=== PATIENT | female | born 1995 | race Caucasian/White ===

== ENCOUNTER 2016-12-11 20:06 | Inpatient (IN) ==
[2016-12-11 14:20] LABS: Bilirubin,Urine Negative (Negative); Blood,Urine Moderate (Negative); Clarity,Urine Cloudy (Clear); Color,Urine Yellow (Yellow); Ketones,Urine Trace mg/dL (Negative); Leukocyte Esterase,Urine Negative (Negative); Nitrite,Urine Negative (Negative); PH,Urine 6.5 pH Units (5.0-8.0); Protein,Urine Negative (Neg-Trace); Specific Gravity,Urine 1.019 (1.010-1.025); Urobilinogen,Urine Normal (Normal)
[2016-12-11 14:25] LABS: Bacteria,Urine None Seen per hpf (None-Few); Hyaline Casts,Urine None Seen per lpf (None-Few); RBC,Urine 0-3 per hpf (0-3); Squamous Epithelial Cell,Urine Moderate per lpf (None-Few); WBC,Urine 0-3 per hpf (0-3)
[2016-12-11 14:40] LABS: Glucose,Urine (UA) Normal (Normal)
[~2016-12-11 20:06] MED LIST: *HR* Morphine 10 MG/ML VIAL SQ ONE; *HR* Morphine 2 MG/ML SYRINGE SQ ONE; Famotidine 20 MG/2 ML VIAL IVP PRN; Naloxone 0.4 MG/ML INJ IVP PRN; Ondansetron 4 MG/2 ML VIAL IVP PRN
--- NOTE | 2016-12-11 20:06 | OB/GYN History & Physical ---
Date of Encounter: 12/11/16 Time of Encounter: 20:04 Assessment and Plan (1) 37 weeks gestation of Current visit: Yes Status: Acute (2) Obesity (BMI 35.0-39.9 without comorbidity) Current visit: Yes Status: Acute (3) Spontaneous onset of labor Current visit: Yes Status: Acute Admit for labor due to SVE change from 2-3 on arrival to 5cm now. Epidural when able. GBS negative. Anticipate . History of Present Illness Chief complaint: contractions HPI: Ms. Navarro is a 20 year old female presenting at 37w4d with c/o that started at 1000 this am and were initially 8 minutes apart. While in triage her contractions increased in frequency, duration, and intensity. She received morphine for therapeutic rest. After a few hours her cervical exam changed from 2-3cm on initial exam to 5cm. She denies LOF or VB. Good FM today. THis has been complicated by obesity. Blood type O positive. Rubella immune. Serologies and GBS negative. Past Med Surg Social Fam HX - Past Medical History Medical history: no medical history, other Psychiatric history: no psych history - Past Surgical History Surgical History: other - Social History Smoking Status: Current every day smoker Packs per day: 0.5 Smokeless Tobacco Status: No Alcohol use: none Drug use: none - Family History Mother Adopted: No Living Status: Still Living Hx Family Cardiac Disorders: Yes ([place]) Obstetrical History - Pregnancies : 1 Medications and Allergies Vit/Iron Fumarate/FA [ Tablet] 1 each PO DAILY #30 tablet 05/01 [Rx] Allergies Amoxicillin [From Augmentin] Allergy (Verified 12/11/16 13:58) Rash clavulanic acid [From Augmentin] Allergy (Verified 12/11/16 13:58) Rash Loracarbef [From Lorabid] Allergy (Verified 12/11/16 13:58) Difficulty Breathing Penicillins Allergy (Verified 12/11/16 13:58) Rash sulfamethoxazole [From Bactrim] Allergy (Verified 12/11/16 13:58) Rash trimethoprim [From Bactrim] Allergy (Verified 12/11/16 13:58) Rash Review of System OB All systems PM: reviewed and no additional remarkable complaints except as stated Exam - Constitutional Constitutional: well developed, well nourished, moderate distress, obese - HEENT HEENT: Mucus Membranes Moist - Lungs Respiratory exam: CTAB - Cardiovascular Cardiovascular exam: RRR, +S1, +S2 - Abdomen Abdomen: Present: gravid, non tender (EFW by terra is 7lbs) - Extremities Extremities exam: pedal edema (mild bilaterally) - Vulva Vulva: bilateral: normal - Vagina Vagina: Present: normal moisture - Cervix Dilation: 5 Effacement: 80 (BBOW) Station: -1 - Uterus Uterus exam: Absent: tender - Anus/Rectum Anus/Rectum: Present: normal perianal skin Results Abnormal lab results Urine Clarity Cloudy (Clear) A 12/10/16 13:45 Urine Ketones Trace mg/dL (Negative) H 12/10/16 13:45 Urine Blood Moderate (Negative) H 12/10/16 13:45 Ur Squamous Epith Cells Moderate per lpf (None-Few) H 12/10/16 13:45 All other labs normal. - VTE Reasons for not Prescribing Prophylaxis: Treatment not Indicated - Low risk for VTE
[2016-12-11] MEDS ORDERED: Ringers Solution, Lactated 1,000 ML ONE ×3 (20:14→22:10)
[2016-12-11 20:21] LABS: Basophils % 0.2 %; Eosinophils % 0.1 %; Hematocrit 42.2 % (35.3-44.9); Hemoglobin 14.1 g/dL (11.5-15.4); Immature Granulocytes % 0.5 % (0-4); Immature Platelets 7.8 % (1.1-6.1); Lymphocytes # 1.5 K/mcL (0.6-4.6); Mean Corpuscular HGB Conc 33.4 g/dL (31.6-35.5); Mean Corpuscular Hemoglobin 29.7 pg (28.0-33.3); Mean Platelet Volume 10.6 fL (9.4-12.4); Monocytes # 0.9 K/mcL (0.0-1.3); Monocytes % 3.9 %; Neutrophils # 19.1 K/mcL (1.6-8.9); Platelet Count 261 K/mcL (140-400); Red Blood Count 4.74 M/mcL (3.82-4.97); Segmented Neutrophils % 88.3 %
--- NOTE | 2016-12-11 20:52 | OB Labor Progress Note ---
Date of Encounter: 12/11/16 Time of Encounter: 20:50 Labor Progress Note - Subjective Subjective: Pt reports pain is increasing again as morphine is wearing off. She is requesting epidural. - Cervix Cervix: 5/100/-1 BBOW - Heart Tones Heart Tones: Category I - Hartsel Hartsel: 2.5-4 minutes - Interventions Interventions: AROM for moderate amount clear fluid. FSE placed due to difficulty tracing FHR prior to AROM. - Plan Plan: Continue to monitor. Epidural when able. Anticipate .
[2016-12-11] MEDS ORDERED: *HR* FentaNYL (PF) 100 MCG/2 ML VIAL ONE (21:23)
[2016-12-11] MEDS ORDERED: Epidural Premix (fent/bupiv) 110 ML EP ONE (21:23)
[2016-12-11] MEDS ORDERED: Bupivacaine-MPF 0.25% 10 ML VIAL ONE (21:23)
--- NOTE | 2016-12-11 22:03 | Anesthesia Evaluation PreOp ---
Date of Encounter: 12/11/16 Time of Encounter: 21:27 - Past History Planned Operation: ROCIO Cardiac History: Denies any Significant Hx Pulmonary History: Smoker, Pack/yr (smokes 1 black and mild per day for past 5 years) [employer] History: Denies Any Significant HX Other Medical History: Denies Any Significant HX Anesthesia History: No Prior Anesthetic Complications (denies personal or family h/o complications w/ GA; never had any procedure requiring NA) : Yes Test: Positive Alcohol Use: none Drug use: none Medications and Allergies Vit/Iron Fumarate/FA [ Tablet] 1 each PO DAILY #30 tablet 05/01 [Rx] Allergies Amoxicillin [From Augmentin] Allergy (Verified 12/11/16 13:58) Rash clavulanic acid [From Augmentin] Allergy (Verified 12/11/16 13:58) Rash Loracarbef [From Lorabid] Allergy (Verified 12/11/16 13:58) Difficulty Breathing Penicillins Allergy (Verified 12/11/16 13:58) Rash sulfamethoxazole [From Bactrim] Allergy (Verified 12/11/16 13:58) Rash trimethoprim [From Bactrim] Allergy (Verified 12/11/16 13:58) Rash - Meds/Allergy Pre-op Review Medications Reviewed: Yes Allergies Reviewed: Yes Beta Blockers on Current Med List: No Anesthesia Results - Labs 12/11/16 20:10 Anesthesia Exam 157/76, HR 86, RR 22 Height: 1.68m Weight: 107kg NPO (# of Hours): solids >8hrs Pain Scale: 10 Pain Scale Used: Numeric (1 - 10) - HEENT Pupil (Motor): Pupils equal Mallampati: II Teeth: Normal Oral Opening: Greater than 3 - [employer] LOC: Oriented [employer] Motor: Normal RUE, Normal LUE, Normal RLE, Normal LLE, Normal Face [employer] Sensory: Normal: RUE, LUE, RLE, LLE, Face - Cardiac Rhythm: Regular Murmur: None - Pulmonary Breath Sounds: bilateral Clear Respiratory Effort: Symmetrical Anesthesia Assess/Plan ASA Score: 2 Modified Carolann Scale for Level of Consciousness: Cooperative, oriented, and tranquil Anesthetic Plan: Regional Autologous Blood: No Monitoring Plan: Standard Monitors Recovery Plan: Other
[2016-12-11] MEDS ORDERED: *HR* FentaNYL (PF) 100 MCG/2 ML VIAL EP ONE (22:05)
[2016-12-11] MEDS ORDERED: Bupivacaine-MPF 0.25% 10 ML VIAL EP ONE (22:05)
--- NOTE | 2016-12-11 22:08 | Anesthesia Procedures ---
Date of Encounter: 12/11/16 Time of Encounter: 22:06 Procedures: Anesthesia - Epidural/Spinal Patient ID/Chart reviewed: Yes Patient examined: Yes OB Eval: Gestational age: 37 weeks 4 days OB Eval: : 1 OB Eval: Hx Para: 0 OB Eval: Dilated at (cm): 6 OB Eval: Contractions: Non-stressed pattern Consent Obtained: Yes Supplemental Oxygen: None/Room Air Site Prep: Aseptic Technique, Sterile prep and drape, Povidone-Iodine 1% Patient position: upright Local Anesthetic: Lidocaine 1% Amount of Local Anesthetic used: 3 Touhy Needle Gauge: 18 Touhy Needle Depth (cm): 7 Catheter Depth at Skin (cm): 14 (placed at 2145) Test Dose (1.5% Lido + Epi): Volume given (mls): 5 (given in 2 equally divided doses over a period of 5 min) Test Dose Result: Negative Loading Dose: 0.25% Marcaine (mls): 5 Loading Dose: Fentanyl (mcg): 100 Loading Dose Administered: Thru Catheter Infusion Med: 0.125% Bupivacaine w/ 2 mcg/ml Fentanyl Infusion Rate (mls/hr): 14 (w/ demand bolus of 4mL q20min) Catheter Secured in Place: Tegaderm, Tape Interspace Used: L3-L4 Loss of Resistance (ABDELRAHMAN): Yes Blood: No CSF: No Paresthesia: No Vitals + FHT's: please see L&D RN's electronic documentation for VS
[2016-12-11] MEDS ORDERED: Epidural Premix (fent/bupiv) 110 ML EP SCH (22:15)
--- NOTE | 2016-12-12 00:34 | Anesthesia Progress Note ---
Date of Encounter: 12/12/16 Time of Encounter: 12:25 Anesthesia Note - Note Note: called to patient bedside to evaluate breakthrough labor pain; patient reports 6 /10 R>L abdominal pain; positioned patient on R side and 5mL of 0.25% bupivicaine administered via epidural catheter. 12/12/16 00:32
[2016-12-12] MEDS ORDERED: Ringers Solution, Lactated 1,000 ML ONE ×3 (00:40→06:42)
[2016-12-12] MEDS ORDERED: *HR* FentaNYL (PF) 100 MCG/2 ML VIAL ONE (02:22)
[2016-12-12] MEDS ORDERED: *HR* Ropivacaine/PF 0.2% 10 ML AMPUL ONE (02:22)
[2016-12-12] MEDS ORDERED: Epidural Premix (fent/bupiv) 110 ML EP ONE (03:14)
--- NOTE | 2016-12-12 03:30 | Anesthesia Progress Note ---
Date of Encounter: 12/12/16 Time of Encounter: 02:30 Anesthesia Note - Note Note: 12/12/16 03:27 Called to patient bedside to evaluate breakthrough labor pain. Patient describes pain as 10/10 and is bilateral lower abdomen. Catheter pulled back to 13 cm rah and 10mL of 0.2% ropivicaine + 100mcg fentanyl administered. Patient reports decrease in pain score to 5/10. VSS
[2016-12-12] MEDS ORDERED: Oxytocin 20 units/ LR 1000 mL 20 UNIT/1,000 ML BAG IVC ONE ×2 (04:40→09:53)
--- NOTE | 2016-12-12 07:53 | OB/GYN Procedure Note ---
Delivery - Delivery Date: 12/12/16 Provider: Jessica Velazquez Intrapartum events: none Delivery induction: none Delivery augmentation: rupture of membranes Delivery monitor: external uterine, internal FHT Anesthesia: epidural Estimated Blood Loss: 150 - (s) Infant A Delivery Date: 12/12/16 Infant Delivery Time: 07:22 Presentation: vertex Position: EULOGIO Route of delivery: Gender: Female Viability: Viable Pounds: 5 Ounces: 9 at 1 minute: 7 at 5 mins: 9 Shoulder Dystocia: not encountered Specimens collected: cord blood Placenta: spontaneous Cord: nuchal cord, nuchal reduced - Repair Episiotomy: none Laceration Description: None - Complications Delivery complications: none Delivery comments: 20 year-old presenting at 37 weeks in spontaneous labor. She progressed from 3-5 and was admitted for delivery. AROM was performed and she received epidural anesthesia. She progressed normally to complete dilation and pushed effectively to over intact perineum. Infant was a viable female weighing 5lbs 9oz with apgars 7 at one minute and 9 at five minutes. After a 60 second delay the cord was clamped and cut and the placenta delivered spontaneous and intact. No repair was needed. EBL 150ml. Mohter and baby stable in kangaroo care following delivery. - Disposition Mom disposition: stable in LDR disposition: stable in LDR
[2016-12-12] MEDS ORDERED: Acetaminophen 325 MG TABLET PO PRN (10:58)
[2016-12-12] MEDS ORDERED: Oxytocin 20 units/ LR 1000 mL 20 UNIT/1,000 ML BAG IVC SCH (10:58)
[2016-12-12] MEDS ORDERED: Measles/Mumps/Rubella Vacc 0.5 ML VIAL SQ PRN (10:58)
[2016-12-12] MEDS: Prenatal Vit/FA 1 EACH TABLET PO SCH (13:54)
[2016-12-12] MEDS: Ibuprofen 600 MG TABLET PO PRN (20:16)
[2016-12-13 04:21] LABS: Basophils # 0.1 K/mcL (0.0-0.2); Basophils % 0.3 %; Eosinophils # 0.1 K/mcL (0.0-0.6); Eosinophils % 0.6 %; Hematocrit 36.3 % (35.3-44.9); Immature Granulocytes % 0.8 % (0-4); Lymphocytes # 2.6 K/mcL (0.6-4.6); Lymphocytes % 15.3 %; Mean Corpuscular HGB Conc 33.3 g/dL (31.6-35.5); Mean Corpuscular Hemoglobin 30.5 pg (28.0-33.3); Mean Corpuscular Volume 91.4 fL (83.0-100.0); Mean Platelet Volume 11.4 fL (9.4-12.4); Monocytes # 0.9 K/mcL (0.0-1.3); Monocytes % 5.4 %; Platelet Count 241 K/mcL (140-400); Red Blood Count 3.97 M/mcL (3.82-4.97); Red Cell Distribution Width 14.4 % (11.5-14.5); Segmented Neutrophils % 77.6 %
[2016-12-13 04:22] LABS: Hemoglobin 12.1 g/dL (11.5-15.4)
[2016-12-13] MEDS: Ibuprofen 600 MG TABLET PO PRN (08:22)
[2016-12-13] MEDS: Prenatal Vit/FA 1 EACH TABLET PO SCH (08:22)
[2016-12-13 08:40] VITALS: BP 141/71
--- NOTE | 2016-12-13 11:17 | Discharge Summary ---
Date of Encounter: 12/13/16 Time of Encounter: 11:15 - Discharge Diagnosis (1) Vaginal delivery Priority: Primary Status: Acute Comments: S/P Day 1 vaginal delivery. Patient doing well. VSS, pain well controlled, no difficulty with urinating, passing flatus. Lochia light without clots Denies headache, vision changes, epigastric pain ( blood pressure elevated this AM, upon recheck WNL) Patient is bottle feeding Discharge home today - Discharge Medications Prescriptions: Ibuprofen [Motrin] 600 mg PO Q6HR PRN #60 tablet PRN Reason: Cramping Home Medications: Vit/Iron Fumarate/FA [ Tablet] 1 each PO DAILY #30 tablet 05/01 [Rx] Docusate [Colace] 100 mg PO BID capsule 12/13/16 [Rx] Ibuprofen [Motrin] 600 mg PO Q6HR PRN #60 tablet 12/13/16 [Rx] Allergies/Adverse Reactions: Allergies Amoxicillin [From Augmentin] Allergy (Verified 12/11/16 13:58) Rash clavulanic acid [From Augmentin] Allergy (Verified 12/11/16 13:58) Rash Loracarbef [From Lorabid] Allergy (Verified 12/11/16 13:58) Difficulty Breathing Penicillins Allergy (Verified 12/11/16 13:58) Rash sulfamethoxazole [From Bactrim] Allergy (Verified 12/11/16 13:58) Rash trimethoprim [From Bactrim] Allergy (Verified 12/11/16 13:58) Rash Data Procedures and tests throughout hospitalization: Laboratory Tests 12/10/16 12/11/16 12/13/16 13:45 20:10 03:07 WBC 21.6 H 16.7 H RBC 4.74 3.97 Hgb 14.1 12.1 D Hct 42.2 36.3 MCV 89.0 91.4 MCH 29.7 30.5 MCHC 33.4 33.3 RDW 14.0 14.4 Plt Count 261 241 MPV 10.6 11.4 Immature Gran % 0.5 0.8 Seg Neutrophils % 88.3 77.6 Lymphocytes % 7.0 15.3 Monocytes % 3.9 5.4 Eosinophils % 0.1 0.6 Basophils % 0.2 0.3 Neutrophils # 19.1 H 13.0 H Lymphocytes # 1.5 2.6 Monocytes # 0.9 0.9 Eosinophils # 0.0 0.1 Basophils # 0.0 0.1 Immature Plt Fraction 7.8 H Urine Color Yellow Urine Clarity Cloudy A Urine pH 6.5 Ur Specific [place] 1.019 Urine Protein Negative Urine Glucose (UA) Normal Urine Ketones Trace H Urine Blood Moderate H Urine Nitrite Negative Urine Bilirubin Negative Urine Urobilinogen Normal Ur Leukocyte Esterase Negative Urine Microscopic RBC 0-3 Urine Microscopic WBC 0-3 Ur Squamous Epith Cells Moderate H Urine Bacteria None Seen Hyaline Casts None Seen Labs on day of discharge: Labs from last 24 hours 12/13/16 03:07 WBC 16.7 H RBC 3.97 Hgb 12.1 D Hct 36.3 MCV 91.4 MCH 30.5 MCHC 33.3 RDW 14.4 Plt Count 241 MPV 11.4 Immature Gran % 0.8 Seg Neutrophils % 77.6 Lymphocytes % 15.3 Monocytes % 5.4 Eosinophils % 0.6 Basophils % 0.3 Neutrophils # 13.0 H Lymphocytes # 2.6 Monocytes # 0.9 Eosinophils # 0.1 Basophils # 0.1 Date of admission: 12/11/16 20:06 Primary care physician: Rebekah Dozier, Consults: 12/12/16 10:58 Consult to Contract Forester [CONS] Routine Comment: Vaginal delivery, consult needed Discharging clinician: Monet Morley Anticipated date of discharge: 12/13/16 - Patient Status Disposition: Home, Self-Care Condition: Good Functional capacity at discharge: independent ambulation Overall status at discharge: patient is back to baseline - Discharge Instructions Follow Up With: Rebekah Dozier CNP [Primary Care Provider] - Jessica Velazquez CNM [Non-Partnered Physician] - Additional Instructions: Perineal Care: Always wipe front to back Change your pad frequently Use your asad bottle with warm water and spray front to back Do not douche, use tampons, have sexual intercourse or put anything in your vagina for 4-6 weeks after delivery Bleeding: Vaginal bleeding can last up to 6 weeks Your menstrual period may return as early as 6 weeks after you are discharged from the hospital Chel/Stitches Care: Vaginal Delivery Vaginal stitches will dissolve within 4-6 weeks Follow perineal care instructions Care Stitches will dissolve on their own If you have chel, they will need to be removed in the doctors office within 5-7 days. You may shower with stitches or chel Drip plan or soapy water over the incision to clean. Pat dry gently with a clean towel. Make sure you completely dry under the skin folds DO NOT USE powders, lotions, rubbing alcohol or hydrogen peroxide on or around your incision. This will slow your wound healing It is normal to have soreness, burning, tingling, itchiness and/or numbness as your incision heals Activity: Rest frequently Do not lift anything heavier than a gallon of milk, up to 10-15 pounds No driving for 1-2 weeks for Vaginal delivery No driving for 2-4 weeks for delivery Take stairs slowly, one at a time Gradually increase your daily activity until you are back to your normal routine Do not exercise until you have had your follow-up appointment Bathing: Take a shower daily Do not take a tub bath for the first 4 weeks Diet: Drink plenty of water and fruit juices Eat a well-balanced diet with foods high in fiber such as fruits and vegetables Depression: Your hormones have a major impact on your feelings and emotions. Hormone imbalance may cause changes in your mood, creating unfamiliar thoughts and actions. Support is available to help you understand and cope with these feelings and mood changes. If you answer yes to any of the following questions, please call your health care provider: Are you having trouble sleeping? Are you feeling isolated? Have you lost your appetite? Are you having thoughts of hurting yourself or others? WARNING SIGNS: Heavy bleeding from the vagina (blood is bright red and soaks a sanitary pad in an hour or less.) Passing a blood clot larger than your fist Discharge from the vagina that has a bad odor Temperature over 100.4 F, or if you feel cold and have chills An episiotomy site that is warm, swollen or oozing. Use a mirror if needed Urination (pee) that is painful, very red and swollen or leaking fluid An incision that is painful, very red and swollen and leaking fluid An incision that has come open Breasts that are painful or full with flu like symptoms Redness, warmth or swelling in the calf of your leg Trouble breathing, dizziness, visual disturbance or faintness *Notify your health care provider immediately or go to the nearest Emergency Room if you experience any of the above signs.* To contact the nurses station 24 hours a day, For non-urgent, routine questions, please call the office at - Diet and Activity Activity: increase activity as tolerated Diet: regular diet Hospital Course Reason for admission: active labor, IUP at term Delivery: Episiotomy: none Laceration: none Other procedures: none complications: none Discharge diagnosis: IUP at term delivered baby: female Time Attestation: Total time spent providing and/or coordinating discharge services: Time Spent: Less than 30 minutes Exam - Constitutional Vitals: Temp Pulse Resp BP Pulse Ox 98.0 F 72 14 141/71 98 12/13/16 07:55 12/13/16 07:55 12/13/16 08:20 12/13/16 07:55 12/13/16 07:55 General appearance IM: cooperative, A&O X 3, pleasant - Respiratory Respiratory exam: Present: CTAB - Cardiovascular Cardiovascular exam IM: Present: RRR, +S1, +S2 - GI/Abdominal GI/Abdominal exam IM: normal bowel sounds, soft - Rectal Rectal exam: deferred - Uterine Tone: Firm Uterus Position: At Umbilicus, Midline - Extremities Exam Extremities exam IM: Present: normal capillary refill, normal inspection, radial pulses palpable and symetrical. Absent: tenderness - Neurological Exam Neurological exam: alert, oriented X3
== END 2016-12-13 14:05 | disposition home or self-care (01) | DRG 560 ==
LOC: 1NENULAB → 1NENUOBS 12-12 10:36
PROVIDERS: ADMIT Registered Nurse; ATTEND Student in an Organized Health Care Education/Training Program

== ENCOUNTER 2019-04-12 06:00 | Inpatient (IN) ==
[2019-04-12] MEDS ORDERED: Ondansetron 4 MG/2 ML VIAL IVP PRN (06:25)
[2019-04-12] MEDS ORDERED: Famotidine 20 MG/2 ML VIAL IVP PRN (06:25)
[2019-04-12] MEDS ORDERED: *HR* Nalbuphine 10 MG/ML AMPUL IVP PRN (06:25)
[2019-04-12] MEDS ORDERED: Metoclopramide 10 MG/2 ML VIAL IVP PRN (06:25)
[2019-04-12] MEDS ORDERED: Naloxone 0.4 MG/ML INJ IVP PRN (06:25)
[2019-04-12] MEDS ORDERED: Ringers Solution, Lactated 1,000 ML IVC SCH (06:30)
[2019-04-12 06:44] LABS: Basophils % 0.3 %; Eosinophils # 0.1 K/mcL (0.0-0.6); Eosinophils % 0.7 %; Hematocrit 40.6 % (35.3-44.9); Hemoglobin 13.4 g/dL (11.5-15.4); Immature Granulocytes % 0.7 % (0-4); Lymphocytes # 1.7 K/mcL (0.6-4.6); Lymphocytes % 12.4 %; Mean Corpuscular Hemoglobin 30.2 pg (28.0-33.3); Mean Corpuscular Volume 91.4 fL (83.0-100.0); Mean Platelet Volume 10.4 fL (9.4-12.4); Monocytes # 0.7 K/mcL (0.0-1.3); Monocytes % 5.2 %; Neutrophils # 10.8 K/mcL (1.6-8.9); Platelet Count 265 K/mcL (140-400); Red Blood Count 4.44 M/mcL (3.82-4.97); Red Cell Distribution Width 14.6 % (11.5-14.5); Segmented Neutrophils % 80.7 %; White Blood Count 13.3 K/mcL (4.3-11.1)
--- NOTE | 2019-04-12 07:07 | OB/GYN History & Physical ---
Date of Encounter: 04/12/19 Time of Encounter: 06:59 Assessment and Plan (1) 39 weeks gestation of Current visit: Yes Status: Acute HARDY for Trich pending If negative will start IOL with noriega and cytotec GBS negative May have epidural/nubain upon request Anticipate vaginal delivery POC per consult with Dr Maldonado. History of Present Illness Chief complaint: Elective IOL HPI: Ms. Navarro is a 23 year old at 39 weeks 4 days that presents to labor and delivery for elective IOL. Patient states positive movement. She denies headaches, vision changes, epigastric pain, leaking of fluid, and vaginal bleeding. She states mild cramping. She has had a normal course without complications. Her history is significant for trich at her suppressed menses visit per her pap and she states she took the medication she was rx'd. She did not have a HARDY with this - we will do this this AM prior to starting the IOL. Ultrasound at 36w1d EFW 56% JOCE 18.2 Labs: GBS negative Blood type O- RPR NR HBSAg NR Varicella Immune Rubella Immune HIV NR Past Med Surg Social Fam HX - Past Medical History Medical history: no medical history Psychiatric history: no psych history - Past Surgical History Surgical History: no surgical history, other Additional surgical history: has had cysts and skin removed under both axilla - Social History Smoking Status: Current every day smoker Packs per day: 1 Smokeless Tobacco Status: No Alcohol use: none Drug use: none - Family History Mother Adopted: No Living Status: Still Living Hx Family Cardiac Disorders: Yes ([place]) Hx Family Respiratory Disorders: No Hx Family Cancer: No Hx Family GI Disorders: No Hx Family Genitourinary Disorders: No Hx Family Endocrine Disorder: No Hx Family Musculoskeletal Disorders: No Hx Family Neuromuscular Disorders: No Hx Family Neurologic Disorders: No Hx Family HEENT Disorders: No Hx Family Autoimmune Disorders: No Hx Family Reproductive Disorders: No Hx Family Psychosocial Disorders: No Hx Family Medical Disorders: Yes (brain aneurysms) Obstetrical History - Pregnancies : 2 Para: 1 Term: 1 : 0 Ab's: 0 Livin Medications and Allergies Pnv No.115/Iron Fumarate/FA [ 19 Chewable Tablet] 1 each PO DAILY #30 tab.chew 08/21/18 [Rx] Allergy/AdvReac Type Severity Reaction Status Date / Time Amoxicillin [From Augmentin] Allergy Rash Verified 04/12/19 06:27 clavulanic acid Allergy Rash Verified 04/12/19 06:27 [From Augmentin] Loracarbef [From Lorabid] Allergy Difficulty Verified 04/12/19 06:27 Breathing Penicillins Allergy See Verified 04/12/19 06:27 Comments sulfamethoxazole Allergy Swelling Verified 04/12/19 06:27 [From Bactrim] of Lip/Tongue/Throat trimethoprim [From Bactrim] Allergy Swelling Verified 04/12/19 06:27 of Lip/Tongue/Throat Review of System OB All systems PM: reviewed and no additional remarkable complaints except as stated Exam - Constitutional Constitutional: well developed, well nourished, no acute distress, obese - HEENT HEENT: Normocephaly, Mucus Membranes Moist - Lungs Respiratory exam: CTAB - Cardiovascular Cardiovascular exam: RRR, +S1, +S2 - Abdomen Abdomen: Present: bowel sounds normal, gravid, non tender - Extremities Extremities exam: normal capillary refill, normal inspection, radial pulses palpable and symmetrical Deep Tendon Reflex Grade: 2+ Normal - Vulva Vulva: bilateral: normal - Vagina Vagina: Present: normal moisture - Cervix Dilation: 2 Effacement: 75 Station: -2 - Uterus Uterus exam: Present: normal size, normal contour - Anus/Rectum Anus/Rectum: Present: normal perianal skin Results Result Diagrams: 04/12/19 06:25 Abnormal lab results WBC 13.3 K/mcL (4.3-11.1) H 04/12/19 06:25 RDW 14.6 % (11.5-14.5) H 04/12/19 06:25 Neutrophils # 10.8 K/mcL (1.6-8.9) H 04/12/19 06:25 All other labs normal. - VTE Reasons for not Prescribing Prophylaxis: Treatment not Indicated - Low risk for VTE
[2019-04-12 07:31] LABS: Amphetamine Screen,Urine Negative ng/mL (Cutoff=1000); Barbiturate Screen,Urine Negative ng/mL (Cutoff=200); Benzodiazepines Screen,Urine Negative ng/mL (Cutoff=300); Cannabinoid Screen,Urine Negative ng/mL (Cutoff = 50); Cocaine Screen,Urine Negative ng/mL (Cutoff= 300); Opiate Screen,Urine Negative ng/mL (Cutoff=300); Phencyclidine Screen,Urine Negative ng/mL (Cutoff=25)
[2019-04-12] MEDS ORDERED: miSOPROStol 25 MCG TABLET VG SCH (08:00)
[2019-04-12 08:20] LABS: Candida DNA DETECTED (Not Detect); Gardnerella DNA Not Detected (Not Detect); Trichomonas DNA Not Detected (Not Detect)
[2019-04-12] MEDS ORDERED: miSOPROStol 25 MCG TABLET VG STA (08:32)
[2019-04-12] MEDS ORDERED: EPHEDrine 50 MG/ML VIAL IVP PRN (08:50)
--- NOTE | 2019-04-12 08:50 | Anesthesia Evaluation PreOp ---
Date of Encounter: 04/12/19 Time of Encounter: 08:48 - Past History Planned Operation: luke Cardiac History: Denies any Significant Hx Pulmonary History: Denies Any Significant HX [employer] History: Denies Any Significant HX Other Medical History: Denies Any Significant HX Anesthesia History: No Prior Anesthetic Complications, Past Anesthesia : Yes (, 39 weeks) Alcohol Use: none Drug use: none Medications and Allergies Pnv No.115/Iron Fumarate/FA [ 19 Chewable Tablet] 1 each PO DAILY #30 tab.chew 08/21/18 [Rx] Allergy/AdvReac Type Severity Reaction Status Date / Time Amoxicillin [From Augmentin] Allergy Rash Verified 04/12/19 06:27 clavulanic acid Allergy Rash Verified 04/12/19 06:27 [From Augmentin] Loracarbef [From Lorabid] Allergy Difficulty Verified 04/12/19 06:27 Breathing Penicillins Allergy See Verified 04/12/19 06:27 Comments sulfamethoxazole Allergy Swelling Verified 04/12/19 06:27 [From Bactrim] of Lip/Tongue/Throat trimethoprim [From Bactrim] Allergy Swelling Verified 04/12/19 06:27 of Lip/Tongue/Throat - Meds/Allergy Pre-op Review Medications Reviewed: Yes Allergies Reviewed: Yes Beta Blockers on Current Med List: No Anesthesia Results - Labs 04/12/19 06:25 Anesthesia Exam O2 Sat Height 1.68 m Height 1.68 m Weight 118.388 kg Height: 66 Weight: 261 - HEENT Pupil (Motor): Pupils equal Mallampati: II Teeth: Normal Oral Opening: Greater than 3 - [employer] LOC: Oriented [employer] Motor: Normal RUE, Normal LUE, Normal RLE, Normal LLE, Normal Face [employer] Sensory: Normal: RUE, LUE, RLE, LLE, Face - Cardiac Rhythm: Regular Murmur: None JVD: No Carotid Bruit: No - Pulmonary Breath Sounds: bilateral Clear Respiratory Effort: Symmetrical Anesthesia Assess/Plan ASA Score: 2 Level of consciousness: Cooperative Anesthetic Plan: Epidural Monitoring Plan: Standard Monitors
[2019-04-12] MEDS ORDERED: Epidural Premix (fent/bupiv) 110 ML EP SCH (09:00)
--- NOTE | 2019-04-12 09:06 | OB Labor Progress Note ---
Date of Encounter: 04/12/19 Time of Encounter: 09:08 Labor Progress Note - Cervix Cervix: 3/75/-2 - Heart Tones Heart Tones: 130/moderate/+accels/-decels - [place]: started novii monitoring - Interventions Interventions: Cervical noriega placed - Plan Plan: Cytotec 50mcg po HARDY negative for trich May ambulate with Novii GBS negative Anticipate
[2019-04-12] MEDS ORDERED: Oxytocin 20 units/ LR 1000 mL 20 UNIT/1,000 ML BAG IVC SCH (13:00)
--- NOTE | 2019-04-12 16:07 | OB Labor Progress Note ---
Date of Encounter: 04/12/19 Time of Encounter: 16:06 Labor Progress Note - Subjective Subjective: Pt sleeping with contractions - Heart Tones Heart Tones: 135/moderate/+accels/-decels - [place]: 2-3 - Plan Plan: Continue pitocin per policy frequent repositioning Anticipate
--- NOTE | 2019-04-12 17:44 | OB Labor Progress Note ---
Date of Encounter: 04/12/19 Time of Encounter: 17:39 Labor Progress Note - Subjective Subjective: Pt feeling stronger contractions, - Cervix Cervix: 5-6/80/-2 - Heart Tones Heart Tones: 135/moderate/+accels/? variable decel, novii removed fse applied - [place]: 2-4 - Interventions Interventions: AROM large amount clear fluid FSE applied - Plan Plan: Continue pitocin per policy frequent repositioning anticipate
[2019-04-12] MEDS ORDERED: *HR* FentaNYL (PF) 100 MCG/2 ML VIAL ONE ×2 (18:02→22:48)
[2019-04-12] MEDS ORDERED: Ropivacaine/PF 0.2% 20 ML VIAL ONE (18:02)
--- NOTE | 2019-04-12 18:52 | Anesthesia Procedures ---
Date of Encounter: 04/12/19 Time of Encounter: 18:03 (procedure end time 1846) Procedures: Anesthesia - Epidural/Spinal Patient ID/Chart reviewed: Yes Patient examined: Yes OB Eval: Contractions: Non-stressed pattern Consent Obtained: Yes Supplemental Oxygen: None/Room Air Site Prep: Aseptic Technique Patient position: upright Local Anesthetic: Lidocaine 1% Amount of Local Anesthetic used: 3 Touhy Needle Gauge: 18 Touhy Needle Depth (cm): 7 Catheter Depth at Skin (cm): 13 Test Dose (1.5% Lido + Epi): Volume given (mls): 3 Test Dose Result: Negative Loading Dose: Fentanyl (mcg): 100 Loading Dose: Other: 6ml 0.2% ropivicaine Loading Dose Administered: Thru Touhy Needle Infusion Med: 0.125% Bupivacaine w/ 2 mcg/ml Fentanyl Infusion Rate (mls/hr): [address]: Tegaderm Interspace Used: L3-L4 Loss of Resistance (ABDELRAHMAN): Yes Blood: No CSF: No Paresthesia: No Procedure: Strict asepsis, good ABDELRAHMAN at 7 cm x 3 redirections on first attempt. Bolus through needle, catheter to 13cm at skin. Negative test dose and gtt started at 14ml/hr. FHR unchanged.
[2019-04-12] MEDS ORDERED: 0.9 % Sodium Chloride 1,000 ML ONE (20:21)
--- NOTE | 2019-04-12 20:30 | OB Labor Progress Note ---
Date of Encounter: 04/12/19 Time of Encounter: 20:22 Labor Progress Note - Subjective Subjective: comfortable with epidural - Vital Signs Vital Signs: 133/73 P81 - Cervix Cervix: 6/90/-2 - Heart Tones Heart Tones: 130/moderate/-accels/variable and early decels since AROM - [place]: IUPC placed - Interventions Interventions: IUPC placed, start amnioinfusion - Plan Plan: Start amnioinfusion frequent repositioning with peanut ball anticipate
[2019-04-12] MEDS ORDERED: Chloroprocaine/PF 20 ML VIAL INFILT ONE ×2 (22:23→22:43)
[2019-04-12] MEDS ORDERED: *HR* Oxytocin 10 UNIT/ML VIAL IM ONE (22:26)
[2019-04-12] MEDS ORDERED: *HR* Phenylephrine 10 MG/ML VIAL ONE (22:26)
[2019-04-12] MEDS ORDERED: Gentamicin 420 MG in 0.9 % Sodium Chloride 100 ML IVPB ONE (22:36)
[2019-04-12] MEDS ORDERED: Clindamycin 900 MG/50 ML 900 MG/50 ML IV.SOLN IVPB ONE (22:36)
[2019-04-12] MEDS ORDERED: Ringers Solution, Lactated 1,000 ML ONE (22:36)
[2019-04-12] MEDS ORDERED: Azithromycin 500 MG in 0.9 % Sodium Chloride 250 ML IVPB ONE (22:36)
--- NOTE | 2019-04-12 22:44 | OB Labor Progress Note ---
Date of Encounter: 04/12/19 Time of Encounter: 22:24 Labor Progress Note - Subjective Subjective: Comfortable with epidural - Cervix Cervix: 6/90/-1 - Heart Tones Heart Tones: 135/moderate/- accels/recurrent variables - [place]: 2-5 - Plan Plan: Variables not responsive to amnioinfusion, attempted repositions pitocin turned off Dr[facility], transfer of care to Abisai Olivares at this time
[2019-04-12] MEDS ORDERED: *HR* Midazolam HCl 2 MG/2 ML VIAL ONE (22:49)
[2019-04-12] MEDS ORDERED: *HR* Morphine Sulfate/PF 10 MG/10 ML AMPUL ONE (23:07)
[2019-04-12] MEDS ORDERED: Ketorolac 30 MG/ML VIAL IVP ONE (23:23)
[2019-04-12] MEDS ORDERED: Acetaminophen IV 1,000 MG/100 ML INFUS..BTL IVPB ONE (23:23)
[2019-04-12] MEDS ORDERED: Ondansetron 4 MG/2 ML VIAL ONE (23:44)
--- NOTE | 2019-04-12 23:55 | OB/GYN Procedure Note ---
Section - Date of procedure: 04/12/19 Preop diagnosis: category 2 FHT tracing Post-op diagnosis: same Procedure: primary low transverse Surgeon: Dorita Barone Quantitated Blood Loss: 400 Was there an orthopaedic physician assistant present: Yes Product Support Consultant: Meli Liriano Help Desk Operator: Eder Maldonado Anesthesia Type: Epidural section complications: none Disposition: L&D Recovery Room Specimens: Cord blood - Infant (s) A Delivery Date: 04/12/19 Delivery Time: 22:49 Presentation: vertex Gender: Female Viability: Viable Gram Weight: 3.465 kg at 1 minute: 6 at 5 minutes: 9 Shoulder Dystocia: not encountered Specimens collected: cord blood Placenta: complete extraction Cord: nuchal cord (x1) - Narrative Narrative: The patient was taken to the operating room where epidural anesthesia was found to be adequate. The patient was prepped and draped in the usual sterile fashion in the dorsal supine position with a left-salgado tilt. A Pfannenstiel skin incision was made with the scalpel and carried through to the underlying layer of fascia. The fascia was incised in the midline and extended laterally and bluntly. Dewey clamps were used to elevate the superior aspect of the fascial incision, which was elevated, and the underlying rectus muscles were dissected off bluntly and using Hodges scissors. Attention was then turned to the inferior aspect of the fascial incision and the underlying rectus muscles were dissected off bluntly. The rectus muscles were dissected in the midline. The peritoneum was bluntly dissected, entered, and extended superiorly and inferiorly with good visualization of the bladder. The bladder blade was inserted. The lower uterine segment was incised in a transverse fashion using the scalpel and extended using manual traction. Clear fluid was noted. The was subsequently delivered atraumatically. The nose and mouth were bulb suctioned. The cord was clamped and cut. The infant was subsequently handed to the awaiting nursery nurse. The uterus was exteriorized and cleared of all clots and debris. The uterine incision was repaired in 2 layers using 0 vicryl suture. Hemostasis was visualized. The uterus was returned to the abdomen. The uterine incision was reexamined and was noted to be hemostatic. The fascia was closed with 0 Vicryl, the subcutaneous layer was closed with 3-0 vicryl, and the skin was closed with 4-0 vicryl. Sponge, lap, and instrument counts were correct x2. The patient was stable at the completion of the procedure and was subsequently transferred to the recovery room in stable condition.
[2019-04-12] MEDS: *HR* HYDROmorphone (PF) 1 MG/ML SYRINGE IVP PRN (23:58)
[2019-04-13] MEDS: *HR* HYDROmorphone (PF) 1 MG/ML SYRINGE IVP PRN (00:29)
[2019-04-13] MEDS ORDERED: Rho Immune Globulin 1,500 UNIT SYRINGE IM ONE (02:17)
[2019-04-13] MEDS ORDERED: Oxytocin 20 units/ LR 1000 mL 20 UNIT/1,000 ML BAG IVC SCH (02:17)
[2019-04-13] MEDS ORDERED: Ondansetron 4 MG/2 ML VIAL IVP PRN (02:17)
[2019-04-13] MEDS ORDERED: Metoclopramide 10 MG/2 ML VIAL IVP PRN (02:17)
[2019-04-13] MEDS ORDERED: Sennosides 8.6 MG TABLET PO PRN (02:17)
[2019-04-13 05:35] LABS: Basophils % 0.2 %; Eosinophils % 0.2 %; Hematocrit 37.1 % (35.3-44.9); Hemoglobin 12.4 g/dL (11.5-15.4); Immature Granulocytes % 0.6 % (0-4); Lymphocytes # 1.5 K/mcL (0.6-4.6); Lymphocytes % 8.3 %; Mean Corpuscular HGB Conc 33.4 g/dL (31.6-35.5); Mean Corpuscular Hemoglobin 30.2 pg (28.0-33.3); Mean Corpuscular Volume 90.5 fL (83.0-100.0); Mean Platelet Volume 10.6 fL (9.4-12.4); Monocytes # 0.8 K/mcL (0.0-1.3); Monocytes % 4.4 %; Neutrophils # 15.3 K/mcL (1.6-8.9); Platelet Count 213 K/mcL (140-400); Red Cell Distribution Width 14.5 % (11.5-14.5); Segmented Neutrophils % 86.3 %; White Blood Count 17.7 K/mcL (4.3-11.1)
--- NOTE | 2019-04-13 06:41 | Anesthesia Evaluation Post Op ---
Date of Encounter: 04/13/19 Time of Encounter: 06:40 - Vital Signs Vital Signs: Vital Signs/O2 Sat, Most Current Temp Pulse Resp BP Pulse Ox 98.5 F 64 14 112/63 97 04/13/19 04:55 04/13/19 04:55 04/13/19 04:55 04/13/19 04:55 04/13/19 04:55 - Lungs Lungs: Clear Ascult./Percussion - Airway Airway: Non-obstructed - Cardiovascular Regular Rate - Mental Status Mental Status: Alert & Oriented, Answers Appropriately - Pain Pain Scale: 3 - Nausea Vomiting Nausea Vomiting: Not Present - Hydration Hydration: Tolerates oral liquids, Humphreys catheter
[2019-04-13] MEDS ORDERED: Fluconazole 100 MG TABLET PO ONE (07:54)
--- NOTE | 2019-04-13 08:02 | OB/GYN Progress Note ---
Date of Encounter: 04/13/19 Time of Encounter: 07:56 - Assessment and Plan (1) Status post primary low transverse section Current Visit: Yes Status: Acute Patient meeting day one milestones. Pain well-controlled with prescribed medications. Humphreys still in place, clear yellow urine draining. Bleeding light, tolerating clear liquids and will try regular diet for breakfast. Denies nausea. Not passing flatus. Anticipate discharge Saturday (2) Yeast vaginitis Current Visit: Yes Status: Acute + Yeast on admission Diflucan ordered x 1 today. Subjective - Subjective Principal diagnosis: Status post section Interval history: Date of procedure: 04/12/19 Preop diagnosis: category 2 FHT tracing Post-op diagnosis: same Procedure: primary low transverse Surgeon: Dorita Barone Quantitated Blood Loss: 400 Was there an retail event assistant present: Yes Momd Teacher: Meli Liriano Deputy Harbormaster: Eder Maldonado Anesthesia Type: Epidural section complications: none Disposition: L&D Recovery Room Specimens: Cord blood - (s) A Infant Delivery Date: 04/12/19 Delivery Time: 22:49 Presentation: vertex Gender: Female Viability: Viable Gram Weight: 3.465 kg at 1 minute: 6 at 5 minutes: 9 Shoulder Dystocia: not encountered Specimens collected: cord blood Placenta: complete extraction Cord: nuchal cord (x1) - Narrative Narrative: The patient was taken to the operating room where epidural anesthesia was found to be adequate. The patient was prepped and draped in the usual sterile fashion in the dorsal supine position with a left-salgado tilt. A Pfannenstiel skin incision was made with the scalpel and carried through to the underlying layer of fascia. The fascia was incised in the midline and extended laterally and bluntly. Dewey clamps were used to elevate the superior aspect of the fascial incision, which was elevated, and the underlying rectus muscles were dissected off bluntly and using Hodges scissors. Attention was then turned to the inferior aspect of the fascial incision and the underlying rectus muscles were dissected off bluntly. The rectus muscles were dissected in the midline. The peritoneum was bluntly dissected, entered, and extended superiorly and inferiorly with good visualization of the bladder. The bladder blade was inserted. The lower uterine segment was incised in a transverse fashion using the scalpel and extended using manual traction. Clear fluid was noted. The infant was subsequently delivered atraumatically. The nose and mouth were bulb suctioned. The cord was clamped and cut. The was subsequently handed to the awaiting nursery nurse. The uterus was exteriorized and cleared of all clots and debris. The uterine incision was repaired in 2 layers using 0 vicryl suture. Hemostasis was visualized. The uterus was returned to the abdomen. The uterine incision was reexamined and was noted to be hemostatic. The fascia was closed with 0 Vicryl, the subcutaneous layer was closed with 3-0 vicryl, and the skin was closed with 4-0 vicryl. Sponge, lap, and instrument counts were correct x2. The patient was stable at the completion of the procedure and was subsequently transferred to the recovery room in stable condition. Patient reports: appetite normal, voiding normally (Humphreys in place), pain well controlled [place]: doing well, bottle feeding Objective - Vital Signs Latest vital signs: Vital Signs Temp Pulse Resp BP Pulse Ox 04/13/19 04:55 98.5 F 64 14 112/63 97 04/13/19 03:45 98.5 F 77 14 112/62 97 04/13/19 03:00 97.9 F 69 16 118/65 98 04/13/19 02:15 97.9 F 73 14 116/66 97 04/13/19 01:45 98.0 F 72 16 115/68 97 Intake and Output 04/12/19 04/12/19 04/13/19 15:59 23:59 07:59 Intake Total 1600 / 1600 Output Total 2300 / 2300 Balance -700 / -700 Intake: Intake, Autotransfusion Amount 1600 / 1600 Output: Estimated Blood Loss 400 / 400 Catheter 1900 / 1900 - Exam Lungs: bilateral: normal Chest: Normal S1, Normal S2 Extremities: Present: normal Abdomen: Present: normal appearance, soft. Absent: distention, tenderness Incision: Present: normal, dry, intact Uterus: Present: normal, firm Fundal Height: 0 (@u) - Labs Labs: Laboratory Results - last 24 hr 04/12/19 04/12/19 04/13/19 06:25 07:05 05:12 WBC 17.7 H RBC 4.10 Hgb 12.4 Hct 37.1 MCV 90.5 MCH 30.2 MCHC 33.4 RDW 14.5 Plt Count 213 MPV 10.6 Immature Gran % 0.6 Seg Neutrophils % 86.3 Lymphocytes % 8.3 Monocytes % 4.4 Eosinophils % 0.2 Basophils % 0.2 Neutrophils # 15.3 H Lymphocytes # 1.5 Monocytes # 0.8 Eosinophils # 0.0 Basophils # 0.0 Ur Buprenorphine Scrn Negative Marlen species DNA DETECTED A Gardnerella DNA Probe Not Detected Trichomonas DNA Probe Not Detected
[2019-04-13] MEDS: Simethicone 80 MG TAB.CHEW PO PRN (08:19)
[2019-04-13] MEDS: *HR* OxyCODONE/APAP 5/325 TABLET PO PRN ×3 (08:19→21:00)
[2019-04-13] MEDS: Prenatal Vit/FA 1 EACH TABLET PO SCH (08:19)
[2019-04-13] MEDS ORDERED: [UNRECOGNIZED DRUG - REMARK] PO SCH (09:00)
[2019-04-13] MEDS: Ibuprofen 600 MG TABLET PO PRN ×2 (13:05→21:00)
[2019-04-14] MEDS: *HR* OxyCODONE/APAP 5/325 TABLET PO PRN ×3 (01:56→12:52)
[2019-04-14 08:06] VITALS: BP 135/70
[2019-04-14] MEDS: Simethicone 80 MG TAB.CHEW PO PRN (08:30)
[2019-04-14] MEDS: Prenatal Vit/FA 1 EACH TABLET PO SCH (08:30)
--- NOTE | 2019-04-14 09:31 | OB/GYN Progress Note ---
Date of Encounter: 04/14/19 Time of Encounter: 09:29 - Assessment and Plan (1) Status post primary low transverse section Current Visit: Yes Status: Acute Meeting day two milestones Patient has concerns about pain control and would like to stay another day Anticipate discharge home tomorrow Subjective - Subjective Principal diagnosis: s/p PLTCS Interval history: Feeling well. Out of bed without dizziness. Some abdominal discomfort-not using binder. Cramping minimal, using ibuprofen and Percocet. Bottlefeeding every 2-3 hours. Voiding without difficulty. Passing flatus, no BM yet. Tolerating regular diet. Patient reports: appetite normal, voiding normally, pain well controlled, ambulating normally : doing well, bottle feeding Objective - Vital Signs Latest vital signs: Vital Signs Temp Pulse Resp BP Pulse Ox 04/14/19 08:05 98.6 F 95 14 135/70 97 04/13/19 20:45 98.4 F 98 16 116/75 97 04/13/19 19:35 97.9 F 98 16 116/73 98 04/13/19 15:48 97.6 F 81 16 115/59 97 04/13/19 12:00 97.9 F 81 16 113/66 98 Intake and Output 04/13/19 04/14/19 04/14/19 23:59 07:59 15:59 Output Total 1200 / 5400 Balance -1200 / -3800 Output: Urine 1200 / 1400 Other: Stool Characteristics Normal for Patient - Exam Lungs: bilateral: normal Chest: Normal S1, Normal S2 Extremities: Present: normal Abdomen: Present: normal appearance, soft Incision: Present: normal, dry, intact, dressed Uterus: Present: normal, firm Fundal Height: 2 (Below and midline)
[2019-04-14] MEDS: Ibuprofen 600 MG TABLET PO PRN (15:47)
--- NOTE | 2019-04-14 18:50 | Discharge Summary ---
Date of Encounter: 04/14/19 Time of Encounter: 18:46 - Discharge Diagnosis (1) Status post primary low transverse section Priority: Primary Status: Acute Comments: Feeling well Tolerating regular diet Pain well-controlled with by mouth pain meds Ambulating independently Voiding independently Lochia light Passing flatus, no BM yet Vital signs stable Discharge home today - Discharge Medications Prescriptions: New Ibuprofen [Motrin] 600 mg PO Q6HR PRN #30 tablet PRN Reason: Cramping OxyCODONE/APAP 5/325 [Percocet 5/325 MG] 1 each PO Q6HR PRN 5 Days #20 tablet PRN Reason: Moderate pain 4-6 Docusate [Colace] 100 mg PO BID #30 capsule Simethicone [Gas-X] 80 mg PO TID #90 tab.chew Simethicone [Gas-X] 80 mg PO TID PRN #90 tab.chew PRN Reason: Dyspepsia Continued Pnv No.115/Iron Fumarate/FA [ 19 Chewable Tablet] 1 each PO DAILY #30 tab.chew Home Medications: Pnv No.115/Iron Fumarate/FA [ 19 Chewable Tablet] 1 each PO DAILY #30 tab.chew 08/21/18 [Rx] Docusate [Colace] 100 mg PO BID #30 capsule 04/14/19 [Rx] Ibuprofen [Motrin] 600 mg PO Q6HR PRN #30 tablet 04/14/19 [Rx] OxyCODONE/APAP 5/325 [Percocet 5/325 MG] 1 each PO Q6HR PRN 5 Days #20 tablet 04/14/19 [Rx] Simethicone [Gas-X] 80 mg PO TID #90 tab.chew 04/14/19 [Rx] Simethicone [Gas-X] 80 mg PO TID PRN #90 tab.chew 04/14/19 [Rx] Allergies/Adverse Reactions: Allergy/AdvReac Type Severity Reaction Status Date / Time Amoxicillin [From Augmentin] Allergy Rash Verified 04/12/19 06:27 clavulanic acid Allergy Rash Verified 04/12/19 06:27 [From Augmentin] Loracarbef [From Lorabid] Allergy Difficulty Verified 04/12/19 06:27 Breathing Penicillins Allergy See Verified 04/12/19 06:27 Comments sulfamethoxazole Allergy Swelling Verified 04/12/19 06:27 [From Bactrim] of Lip/Tongue/Throat trimethoprim [From Bactrim] Allergy Swelling Verified 04/12/19 06:27 of Lip/Tongue/Throat Data Procedures and tests throughout hospitalization: Laboratory Tests 04/12/19 04/12/19 04/12/19 06:25 06:25 07:05 WBC 13.3 H RBC 4.44 Hgb 13.4 Hct 40.6 MCV 91.4 MCH 30.2 MCHC 33.0 RDW 14.6 H Plt Count 265 MPV 10.4 Immature Gran % 0.7 Seg Neutrophils % 80.7 Lymphocytes % 12.4 Monocytes % 5.2 Eosinophils % 0.7 Basophils % 0.3 Neutrophils # 10.8 H Lymphocytes # 1.7 Monocytes # 0.7 Eosinophils # 0.1 Basophils # 0.0 Urine Opiates Screen Negative Ur Buprenorphine Scrn Negative Ur Barbiturates Screen Negative Ur Phencyclidine Scrn Negative Ur Amphetamines Screen Negative U Benzodiazepines Scrn Negative Urine Cocaine Screen Negative U Marijuana (THC) Screen Negative Ur Drug Screen Interp See Below Marlen species DNA DETECTED A Gardnerella DNA Probe Not Detected Trichomonas DNA Probe Not Detected 04/13/19 05:12 WBC 17.7 H RBC 4.10 Hgb 12.4 Hct 37.1 MCV 90.5 MCH 30.2 MCHC 33.4 RDW 14.5 Plt Count 213 MPV 10.6 Immature Gran % 0.6 Seg Neutrophils % 86.3 Lymphocytes % 8.3 Monocytes % 4.4 Eosinophils % 0.2 Basophils % 0.2 Neutrophils # 15.3 H Lymphocytes # 1.5 Monocytes # 0.8 Eosinophils # 0.0 Basophils # 0.0 Urine Opiates Screen Ur Buprenorphine Scrn Ur Barbiturates Screen Ur Phencyclidine Scrn Ur Amphetamines Screen U Benzodiazepines Scrn Urine Cocaine Screen U Marijuana (THC) Screen Ur Drug Screen Interp Marlen species DNA Gardnerella DNA Probe Trichomonas DNA Probe Date of admission: 04/12/19 06:04 Primary care physician: Rebekah Dozier CNP Discharging clinician: Monet Solis Anticipated date of discharge: 04/14/19 - Patient Status Disposition: Home, Self-Care Condition: Good Functional capacity at discharge: independent ambulation Overall status at discharge: patient is progressing back to baseline - Discharge Instructions Follow Up With: Rebekah Dozier CNP [Primary Care Provider] - Dorita Barone MD [Partnered Physician] - - Diet and Activity Activity: increase activity as tolerated Diet: regular diet Hospital Course Reason for admission: induction of labor, IUP at term Delivery: section Episiotomy: none Laceration: none Other procedures: none complications: none Discharge diagnosis: IUP at term delivered baby: female Time Attestation: Total time spent providing and/or coordinating discharge services: Time Spent: Less than 30 minutes - VTE Reasons for not Prescribing Prophylaxis: Treatment not Indicated - Low risk for VTE Documentation of Mechanical Device: Intermittent pneumatic compression device Exam - Constitutional Vitals: Temp Pulse Resp BP Pulse Ox 98.6 F 95 14 135/70 97 04/14/19 08:05 04/14/19 08:05 04/14/19 08:05 04/14/19 08:05 04/14/19 08:05 General appearance IM: A&O X 3, morbidly obese, pleasant, no acute distress, answers questions appropriately - Respiratory Respiratory exam: Present: CTAB - Cardiovascular Cardiovascular exam IM: Present: RRR, +S1, +S2 - GI/Abdominal GI/Abdominal exam IM: normal bowel sounds, no peritoneal signs Incision: normal, dry, intact - Rectal Rectal exam: deferred - Uterine Tone: Firm Uterus Position: 2 Fingers Below Umbilicus, Midline - Extremities Exam Extremities exam IM: Present: full ROM, normal capillary refill, normal inspection, radial pulses palpable and symmetrical - Neurological Exam Neurological exam: alert, CN II-XII intact, normal gait, oriented X3, reflexes normal, no focal deficits, strengths equal and symetr throughout - Psychiatric Additional comments: Signs and symptoms of depression discussed with patient and partner and both verbalized understanding of when to seek help
== END 2019-04-14 19:30 | disposition home or self-care (01) | DRG 540 ==
LOC: 1NENULAB 06:04 → 1NENUOBS 04-13 01:52
PROVIDERS: ADMIT Advanced Practice Midwife; ATTEND Advanced Practice Midwife